=== PATIENT | female | born 1985 | race African-American/Black ===

== ENCOUNTER 2016-10-09 21:59 | Emergency (ER) | payer OTHER ==
[~2016-10-09] VITALS: Ht 172.7 cm; Wt 146.1 kg
[~2016-10-09 21:59] MED LIST: AMOX1TAB61 PO
[2016-10-09 23:10] VITALS: BP 161/109
[2016-10-09] MEDS ORDERED: HYDR-971 PO (23:30)
[2016-10-09] MEDS ORDERED: AMOX500C PO (23:30)
--- NOTE | 2016-10-09 23:30 | PHYS DOC ---
Past Medical History Past Medical History: No Pertinent History Past Surgical History: Additional Past Surgical Histo: PARTIAL BOWEL OBSTRUCTION Alcohol Use: Rarely Drug Use: None Adult General Chief Complaint Chief Complaint: DENTAL PROBLEM HPI HPI Patient is a 31 year old female presents emergency room with complaint of right upper dental pain after cracking her tooth on her tongue post 2-3 days ago. Patient states that she is pending an appointment with [facility] in 2 days for reevaluation. She denies being on antibiotics within the past 30 days. She has no other complaints or concerns at this time. Review of Systems Review of Systems Constitutional: Denies fever or chills [] Eyes: Denies change in visual acuity, redness, or eye pain [] HENT: Denies nasal congestion or sore throat [] Respiratory: Denies cough or shortness of breath [] Cardiovascular: No additional information not addressed in HPI [] GI: Denies abdominal pain, nausea, vomiting, bloody stools or diarrhea [] : Denies dysuria or hematuria [] Musculoskeletal: Denies back pain or joint pain [] Integument: Denies rash or skin lesions [] Neurologic: Denies headache, focal weakness or sensory changes [] Endocrine: Denies polyuria or polydipsia [] Allergies Allergies Allergies Coded Allergies Type Severity Reaction Last Updated Verified Sulfa (Sulfonamide Antibiotics) Allergy Intermediate 06/07/14 Yes Physical Exam Physical Exam Constitutional: Well developed, well nourished, no acute distress, non-toxic appearance. [] HENT: Normocephalic, atraumatic, bilateral external ears normal, oropharynx moist, no oral exudates, nose normal. There is no trismus. Right first mandibular molar is decayed into the dentin. There is no purulent drainage. There is no surrounding gingival abscess, inflammation or erythema. Eyes: PERRLA, EOMI, conjunctiva normal, no discharge. [] Neck: Normal range of motion, no tenderness, supple, no stridor. [] Cardiovascular:Heart rate regular rhythm, no murmur [] Lungs & Thorax: Bilateral breath sounds clear to auscultation [] Abdomen: Bowel sounds normal, soft, no tenderness, no masses, no pulsatile masses. [] Skin: Warm, dry, no erythema, no rash. [] Back: No tenderness, no CVA tenderness. [] Extremities: No tenderness, no cyanosis, no clubbing, ROM intact, no edema. [] Neurologic: Alert and oriented X 3, normal motor function, normal sensory function, no focal deficits noted. [] Psychologic: Affect normal, judgement normal, mood normal. [] Current Patient Data Vital Signs Vital Signs Date Time Temp Pulse Resp B/P Pulse Ox O2 Delivery O2 Flow Rate FiO2 10/09/16 23:10 98.4 96 22 97 Room Air 98.4 EKG EKG [] Radiology/Procedures Radiology/Procedures [] Course & Med Decision Making Course & Med Decision Making Pertinent Labs and Imaging studies reviewed. (See chart for details) [] Dragon Disclaimer Dragon Disclaimer This electronic medical record was generated, in whole or in part, using a voice recognition dictation system. Departure Departure Impression: Primary Impression: Pain, dental Disposition: HOME, SELF-CARE Condition: GOOD Referrals: LEN CELIS MD (PCP) Patient Instructions: Dental Pain, [id number] Additional Instructions: 1. Take the medication as prescribed. 2. Be sure to follow up with [facility] as planned. 3. Review the discharge instructions for reasons to return to the emergency room. 4. If you require any refills on medication, be sure to contact her primary care doctor for this. Scripts Amoxicillin 500 Mg Capsule1 Cap PO TID #30 CAP Prov:LOVELY GRAY 10/09/16 Hydrocodone/Apap 5-325 ([place] 5-325 Tablet)1 Each Tablet1 Tab PO PRN Q6HRS PRN PAIN #14 TAB Prov:LOVELY GRAY 10/09/16 LOVELY GRAY Oct 09, 2016 23:30
== END 2016-10-09 23:37 | disposition home or self-care (01) ==
LOC: ER 21:59
DX: K08.89 Other specified disorders of teeth and supporting structures (principal); Z88.2 Allergy status to sulfonamides
CPT/HCPCS: 99283

== ENCOUNTER 2018-01-11 08:41 | Emergency (ER) | payer OTHER | END 2018-01-11 09:35 | disposition home or self-care (01) | LOC: ER 09:35 | DX: H61.23 Impacted cerumen, bilateral (principal); H66.91 Otitis media, unspecified, right ear; Z88.2 Allergy status to sulfonamides | CPT/HCPCS: 69209; 99283-25 ==

== ENCOUNTER 2018-02-15 14:44 | Emergency (ER) | payer OTHER ==
[2018-02-16 08:52] LABS: NEGATIVE OBC STREP NEG; POSITIVE OBC STREP POS
== END 2018-02-15 16:46 | disposition home or self-care (01) ==
LOC: ER 14:44
DX: J03.90 Acute tonsillitis, unspecified (principal); J40 Bronchitis, not specified as acute or chronic; Z88.2 Allergy status to sulfonamides
CPT/HCPCS: 71046; 87070; 87880; 99285-25

== ENCOUNTER 2018-07-11 18:54 | Emergency (ER) | payer SELFPAY ==
[~2018-07-11] VITALS: Ht 172.7 cm; Wt 174.2 kg
[~2018-07-11 18:54] MED LIST changes: +AMOX500C PO; +HYDR-971 PO; +PROAIR HFA8.5 GM INH; +PROM118S3 PO
[2018-07-11 19:10] VITALS: BP 185/105
[2018-07-11] MEDS ORDERED: KETOROLAC 60 MG/2 ML INJ. IM ONE (19:15)
[2018-07-11] MEDS ORDERED: ORPHENADRINE CITRATE 60 MG/2 ML VIAL. IM ONE (19:15)
[2018-07-11] MEDS ORDERED: CYCL10TA2 PO (19:26)
[2018-07-11] MEDS ORDERED: HYDR-971 PO (19:26)
--- NOTE | 2018-07-11 19:27 | PHYS DOC ---
Past Medical History Past Medical History: No Pertinent History Past Surgical History: Additional Past Surgical Histo: PARTIAL BOWEL OBSTRUCTION Alcohol Use: Rarely Drug Use: None Adult General Chief Complaint Chief Complaint: MECHANICAL FALL HPI HPI Patient is a 33 year old female who presents with a heart last night at 20/2/ 30 in slipped on some water and fell on her left side. Patient states that she thought okay after she fell. Patient states she awoke this morning and intense pain and did not get out of bed because it was too hard and stated that she did not eat or drink anything because it was too painful and she did not want To get up to the bathroom. Patient denies taking any pain medications. Patient complains of left neck pain, cervical spine pain down to her lumbar. Review of Systems Review of Systems Constitutional: Denies fever or chills [] Eyes: Denies change in visual acuity, redness, or eye pain [] HENT: Denies nasal congestion or sore throat [] Respiratory: Denies cough or shortness of breath [] Cardiovascular: No additional information not addressed in HPI [] GI: Denies abdominal pain, nausea, vomiting, bloody stools or diarrhea [] : Denies dysuria or hematuria [] Musculoskeletal: Denies back pain or joint pain [] Integument: Denies rash or skin lesions [] Neurologic: Denies headache, focal weakness or sensory changes [] Endocrine: Denies polyuria or polydipsia [] All other systems were reviewed and found to be within normal limits, except as documented in this note. Current Medications Current Medications Current Medications Medications (Trade) Dose Ordered Sig/[facility] Start Time Stop Time Status Last Admin Dose Admin Ketorolac Tromethamine (Toradol Im) 60 mg 1X ONCE 07/11/18 19:15 07/11/18 19:17 DC 07/11/18 20:39 60 MG Orphenadrine Citrate (Norflex) 60 mg 1X ONCE 07/11/18 19:15 07/11/18 19:17 DC 07/11/18 20:38 60 MG Allergies Allergies Allergies Coded Allergies Type Severity Reaction Last Updated Verified Sulfa (Sulfonamide Antibiotics) Allergy Intermediate 06/07/14 Yes Physical Exam Physical Exam Constitutional: Well developed, well nourished, no acute distress, non-toxic appearance. [] HENT: Normocephalic, atraumatic, bilateral external ears normal, oropharynx moist, no oral exudates, nose normal. [] Eyes: PERRLA, EOMI, conjunctiva normal, no discharge. [] Neck: Normal range of motion, no tenderness, supple, no stridor. [] Cardiovascular:Heart rate regular rhythm, no murmur [] Lungs & Thorax: Bilateral breath sounds clear to auscultation [] Abdomen: Bowel sounds normal, soft, no tenderness, no masses, no pulsatile masses. [] Skin: Warm, dry, no erythema, no rash. [] Back: No tenderness, no CVA tenderness. [] Extremities: No tenderness, no cyanosis, no clubbing, ROM intact, no edema. [] Neurologic: Alert and oriented X 3, normal motor function, normal sensory function, no focal deficits noted. [] Psychologic: Affect normal, judgement normal, mood normal. [] Current Patient Data Vital Signs Vital Signs Date Time Temp Pulse Resp B/P (MAP) Pulse Ox O2 Delivery O2 Flow Rate FiO2 07/11/18 19:10 98.0 81 22 185/105 (131) 98 Room Air 98.0 Lab Values Laboratory Tests Test 07/11/18 19:30 07/11/18 19:36 Urine Collection Type Unknown Urine Color Yellow Urine Clarity Clear Urine pH 5.5 Urine Specific [place] 1.025 Urine Protein Negative mg/dL (NEG-TRACE) Urine Glucose (UA) Negative mg/dL (NEG) Urine Ketones (Stick) Negative mg/dL (NEG) Urine Blood Large (NEG) Urine Nitrite Negative (NEG) Urine Bilirubin Negative (NEG) Urine Urobilinogen Dipstick 0.2 mg/dL (0.2 mg/dL) Urine Leukocyte Esterase Trace (NEG) Urine RBC Tntc /HPF (0-2) Urine WBC 1-4 /HPF (0-4) Urine Squamous Epithelial Cells Mod /LPF Urine Bacteria 0 /HPF (0-FEW) Urine Mucus Mod /LPF POC Urine HCG, Qualitative Hcg negative (Negative) EKG EKG [] Radiology/Procedures Radiology/Procedures Cervical spine, thoracic spine, lumbar spin, left tib fib Impressions: Limited but there does not appear to be any acute fractures, dislocations, or deformites. Radiologist to review for final report. Course & Med Decision Making Course & Med Decision Making Patient is a 33 year old female who presents with a fall last night at 2230 by slipping on some water [facility] and fell on her left side. Patient states that she thought okay after she fell. Patient states she awoke this morning and intense pain and did not get out of bed because it was too hard and stated that she did not eat or drink anything because it was too painful and she did not want To get up to the bathroom. Patient denies taking any pain medications. Patient complains of left neck pain, cervical spine pain down to her lumbar. Patient has focal point bony tenderness on the left neck and mid neck neck down the middle of her back to her lumbar area. There are no deformities felt or seen. There is no bruising or swelling seen. Patient can move her neck but states that it is painful. Patient did walk into the ED from her mother's car. She is alert and oriented and denies any numbness or tingling. Patient denies hitting her head or LOC. Patient denies any weaknesses. She denies any nausea or vomiting. She denies any arm pain, wrist pain, ankle pain, foot pain, rib pain. Patient had no pain with palpation to her arms, wrists, ankles, feet or ribs. Patient has no chest pain with palpation or crepitus. She denies any shortness of breath or chest pain. Patient is given IM Norflex and IM Toradol in the ED. Xrays are limited but there does not appear to be any acute fractures , dislocations, or deformites. Radiologist to review for final report. These were read by Dr Del Cid. Patient to follow up with her primary care for continuation of care and to follow up on official reads. Patient will be given a prescription for Cyclobenzaprine and [place]. Patient is stable and in no distress. [] Dragon Disclaimer Dragon Disclaimer This electronic medical record was generated, in whole or in part, using a voice recognition dictation system. Departure Departure Impression: Primary Impression: Fall Additional Impression: Contusion Disposition: 01 HOME, SELF-CARE Condition: STABLE Referrals: LEN CELIS MD (PCP) Patient Instructions: Cervical Sprain, Contusion, Fall Prevention and Home Safety Additional Instructions: Follow up with your primary care doctor. Take medications as prescribed. Scripts Cyclobenzaprine Hcl (CYCLOBENZAPRINE HCL) 10 Mg Tablet 10 MG PO TID, #15 TAB Prov: SKY MODI APRN 07/11/18 Hydrocodone/Apap 5-325 (NORCO 5-325 TABLET) 1 Each Tablet 1 TAB PO PRN Q6HRS PRN for PAIN, #8 TAB 0 Refills Prov: SKY MODI APRN 07/11/18 Problem Qualifiers Primary Impression: Fall Encounter type: initial encounter Qualified Codes: W19.XXXA - Unspecified fall, initial encounter Additional Impression: Contusion Encounter type: initial encounter Contusion area: lower leg Laterality: left Qualified Codes: S80.12XA - Contusion of left lower leg, initial encounter SKY MODI APRN Jul 11, 2018 19:26
[2018-07-11 19:41] LABS: BILIRUBIN,URINE NEGATIVE (NEG); CLARITY,URINE CLEAR; COLOR,URINE YELLOW; NITRITE,URINE NEGATIVE (NEG); PH,URINE 5.5; PROTEIN,URINE NEGATIVE (NEG-TRACE); UROBILINOGEN,URINE 0.2 mg/dL (0.2 mg/dL)
[2018-07-11 19:54] LABS: BACTERIA,URINE 0 /HPF (0-FEW); RBC,URINE TNTC /HPF (0-2); SQUAMOUS EPITHELIAL CELL,UR MOD /LPF
--- NOTE | 2018-07-11 22:23 | RAD ---
Three-view thoracic spine radiographs 07/11/2018 CLINICAL HISTORY: Fall with mid back pain. AP, lateral and swimmer's lateral digital radiographs of the thoracic spine were obtained. Mild S-shaped curvature of the thoracolumbar spine is seen. No fracture or subluxation of the thoracic vertebrae is seen. Degenerative changes are seen involving the thoracic disc spaces consisting of vertebral endplate sclerosis and minimal to mild anterior vertebral body osteophyte formation. No paravertebral soft tissue swelling is noted. IMPRESSION: No fracture or subluxation of the thoracic vertebrae is seen. Electronically signed by: Aamir Ambriz MD (07/11/2018 10:19 PM) [facility]
--- NOTE | 2018-07-11 22:31 | RAD ---
Three-view lumbar spine radiographs 07/11/2018 CLINICAL HISTORY: Fall with low back pain. AP and 2 lateral digital radiographs of the lumbar spine were obtained. The patient appears to have transitional vertebral anatomy. The transitional vertebral segment is sacralized. Very mild S-shaped curvature of the thoracolumbar spine is seen. No fracture or subluxation of the lumbar vertebrae is seen. Degenerative changes are seen involving the facet joints of the lower lumbar spine. IMPRESSION: No fracture or subluxation of the lumbar vertebrae is seen. Electronically signed by: Aamir Ambriz MD (07/11/2018 10:27 PM) [facility]
--- NOTE | 2018-07-11 22:37 | RAD ---
AP and lateral cervical spine radiographs 07/11/2018 CLINICAL HISTORY: Low back pain. AP and lateral digital radiographs of the cervical spine were obtained. Comparison is made to a swimmer's radiograph of the cervical thoracic vertebra obtained for the patient's thoracic spine series concurrently with this examination. Slight reversal of the normal cervical lordosis is seen. No fracture or subluxation cervical vertebrae is seen. No prevertebral soft tissue swelling is noted. IMPRESSION: No fracture or subluxation of the cervical vertebrae is seen. Electronically signed by: Aamir Ambriz MD (07/11/2018 10:34 PM) [facility]
--- NOTE | 2018-07-11 22:40 | RAD ---
AP and lateral left tibia and fibula radiographs 07/11/2018 CLINICAL HISTORY: Fall with left alba pain. 2 AP and 2 lateral digital radiographs of the left tibia and fibula were obtained. No fracture or dislocation of the left tibia or fibula is seen. No radiopaque foreign body is noted. IMPRESSION:No fracture or dislocation of the left tibia or fibula is seen. Electronically signed by: Aamir Ambriz MD (07/11/2018 10:36 PM) [facility]
== END 2018-07-11 21:09 | disposition home or self-care (01) ==
LOC: ER 18:54
DX: S80.12XA Contusion of left lower leg, initial encounter (principal); S10.93XA Contusion of unspecified part of neck, initial encounter; S30.0XXA Contusion of lower back and pelvis, initial encounter; M54.2 Cervicalgia; M54.5 Low back pain; Z88.2 Allergy status to sulfonamides; Z98.890 Other specified postprocedural states; W01.0XXA Fall on same level from slipping, tripping and stumbling without subsequent striking against object, initial encounter; Y93.89 Activity, other specified; Y92.89 Other specified places as the place of occurrence of the external cause; Y99.8 Other external cause status
CPT/HCPCS: 72040; 72072; 72100; 73590; 81001; 81025; 87086; 96372; 99285; J1885; J2360

== ENCOUNTER 2019-05-07 23:01 | Emergency (ER) | payer SELFPAY ==
[~2019-05-07] VITALS: Ht 170.2 cm; Wt 174.2 kg
[~2019-05-07 23:01] MED LIST changes: +ALBU2.5V8 INH; +CYCL10TA2 PO; +HYDR-3164 PO; -HYDR-971 PO; -PROAIR HFA8.5 GM INH; -PROM118S3 PO; +PROM118S4 PO
[2019-05-07 23:03] VITALS: BP 171/105
[2019-05-07] MEDS ORDERED: NEOM10DR32 EACH EAR (23:28)
[2019-05-07] MEDS ORDERED: KETOROLAC 30 MG/ML VIAL. IM ONE (23:30)
[2019-05-07] MEDS ORDERED: ORPHENADRINE CITRATE 60 MG/2 ML VIAL. IM ONE (23:30)
[2019-05-07] MEDS ORDERED: NEOMYCIN/POLYMYXIN/HC OTIC SUSPENSION 10ML BOTTLE. AS ONE (23:30)
--- NOTE | 2019-05-07 23:30 | PHYS DOC ---
Past Medical History Past Medical History: No Pertinent History (LEN PETTY APRN) Past Surgical History: Additional Past Surgical Histo: PARTIAL BOWEL OBSTRUCTION (LEN PETTY APRN) Alcohol Use: Rarely Drug Use: None (LEN PETTY APRN) Adult General Chief Complaint Chief Complaint: FOREIGNBODY EAR HPI HPI Patient is a 34 year old female that presents with left ear pain has been ongoing for 6 days. The patient states she was outside and thought a bug flew in her ear. And her ears been hurting ever since. The patient also states she's been having back spasms since Sunday after moving items. Rates her pain a 7 out of 10 in severity.Originally tried to get an appointment with Dr. Pettit primary care doctor however unable to get into until next . (LEN PETTY APRN) Review of Systems Review of Systems Constitutional: Denies fever or chills [] Eyes: Denies change in visual acuity, redness, or eye pain [] HENT: Reports left ear pain and reduced hearing. Respiratory: Denies cough or shortness of breath [] Cardiovascular: No additional information not addressed in HPI [] GI: Denies abdominal pain, nausea, vomiting, bloody stools or diarrhea [] : Denies dysuria or hematuria [] Musculoskeletal: Reports lower back pain. Integument: Denies rash or skin lesions [] Neurologic: Denies headache, focal weakness or sensory changes [] Endocrine: Denies polyuria or polydipsia [] Complete systems were reviewed and found to be within normal limits, except as documented in this note. (LEN PETTY APRN) Current Medications Current Medications Current Medications Medications (Trade) Dose Ordered Sig/[place] Start Time Stop Time Status Last Admin Dose Admin Ketorolac Tromethamine (Toradol 30mg Vial) 30 mg 1X ONCE 05/07/19 23:30 05/07/19 23:31 DC 05/07/19 23:40 30 MG Neomycin/ Polymyxin/ Hydrocortisone (Cortisporin Otic) 4 drop 1X ONCE 05/07/19 23:30 05/07/19 23:31 DC 05/07/19 23:42 4 DROP Orphenadrine Citrate (Norflex) 60 mg 1X ONCE 05/07/19 23:30 05/07/19 23:31 DC 05/07/19 23:40 60 MG (LENAGHAN,YUSUF MD) Allergies Allergies Allergies Coded Allergies Type Severity Reaction Last Updated Verified Sulfa (Sulfonamide Antibiotics) Allergy Intermediate 06/07/14 Yes (YUSUF ARENAS MD) Physical Exam Physical Exam Constitutional: Well developed, well nourished, no acute distress, non-toxic appearance. [] HENT: Normocephalic, atraumatic, bilateral external ears normal, left ear canal, has mild edema and erythema. Both ears have cerumen impactions, oropharynx moist, no oral exudates, nose normal. [] Eyes: PERRLA, EOMI, conjunctiva normal, no discharge. [] Neck: Normal range of motion, no tenderness, supple, no stridor. [] Cardiovascular:Heart rate regular rhythm, no murmur [] Lungs & Thorax: Bilateral breath sounds clear to auscultation [] Abdomen: Bowel sounds normal, soft, no tenderness, no masses, no pulsatile masses. [] Skin: Warm, dry, no erythema, no rash. [] Back: mild tenderness, no CVA tenderness. [] Extremities: No tenderness, no cyanosis, no clubbing, ROM intact, no edema. [] Neurologic: Alert and oriented X 3, normal motor function, normal sensory function, no focal deficits noted. [] Psychologic: Affect normal, judgement normal, mood normal. [] (LEN PETTY APRN) Current Patient Data Vital Signs Vital Signs Date Time Temp Pulse Resp B/P (MAP) Pulse Ox O2 Delivery O2 Flow Rate FiO2 05/07/19 23:03 98.4 107 16 171/105 (127) 99 Room Air 98.4 (YUSUF ARENAS MD) EKG EKG [] (LEN PETTY APRN) Radiology/Procedures Radiology/Procedures [] (LEN PETTY APRN) Course & Med Decision Making Course & Med Decision Making Pertinent Labs and Imaging studies reviewed. (See chart for details) Patient appears to have cerumen impactions and otitis externa. No insect visualized in the ear. Discussed with patient treating otitis externa with antibiotics and then trying over the counter ear cerumen softener however she wants it irrigated in ER. Nursing will attempt to irrigate. Will also give Toradol and Norflex in ER for back spasms. Nursing cleaned out cerumen and patient has Otitis media in the left ear as well with copious amount of exudate on the tympanic membrane. (LEN PETTY APRN) Course & Med Decision Making Staff Physician Addendum: I was working in the ER during the course of this patient's visit. I was available for consultation as needed, but I was not directly involved in the care of this patient. (YUSUF ARENAS MD) Dragon Disclaimer Dragon Disclaimer This electronic medical record was generated, in whole or in part, using a voice recognition dictation system. (LEN PETTY APRN) Departure Departure Impression: Primary Impression: Otitis externa of left ear Additional Impressions: Impacted cerumen of both ears Otitis media Disposition: 01 HOME, SELF-CARE Condition: STABLE Referrals: LEN PETTIT MD (PCP) Patient Instructions: Otitis Externa Additional Instructions: Thank you for visiting [facility]. We appreciate you trusting us with your care. If any additional problems come up don't hesitate to return to visit us. Please follow up with your primary care provider so they can plan a dditional care if needed and know about the problem that you had. If symptoms worsen come back to the Emergency Department. Any concerning symptoms that start such as chest pain, shortness of air, weakness or numbness on one side of the body, running high fevers or any other concerning symptoms return to the ER. You have been prescribed an antibiotic today to help fight your infection. Please take all of the antibiotic as directed. If after 48 hours the infection is not improving, please return for more care. If the infection worsens, return to ER for additional care. Please get over the counter ear wax softener to her get the ear wax out of ear. Scripts Amoxicillin/Potassium Clav (AUGMENTIN 875-125 TABLET) 1 Each Tablet 1 TAB PO BID for 7 Days, #14 TAB Prov: LEN PETTY APRN 05/08/19 Neomycin/Polymyxin B Sulf/Hc (VWCYFRQV-GQRVURMEL-CC EAR SUSP) 10 Ml Drops.susp 4 DROP EACH EAR QID for 7 Days, #10 ML Prov: LEN PETTY APRN 05/07/19 Problem Qualifiers Primary Impression: Otitis externa of left ear Otitis externa type: unspecified type Chronicity: acute Qualified Codes: H60.502 - Unspecified acute noninfective otitis externa, left ear Additional Impressions: Otitis media Chronicity: acute Laterality: left Recurrence: not specified as recurrent LEN PETTY APRN May 07, 2019 23:30 YUSUF ARENAS MD May 10, 2019 00:37
[2019-05-08] MEDS ORDERED: AMOX1TAB61 PO (00:10)
== END 2019-05-08 00:15 | disposition home or self-care (01) ==
LOC: ER 23:01
DX: H60.502 Unspecified acute noninfective otitis externa, left ear (principal); H61.23 Impacted cerumen, bilateral; H66.92 Otitis media, unspecified, left ear; M54.5 Low back pain; Z98.890 Other specified postprocedural states; Z88.2 Allergy status to sulfonamides
CPT/HCPCS: 69209; 96372; 99284; J1885; J2360; 69210; 99283

== ENCOUNTER 2019-07-13 14:02 | Emergency (ER) | payer SELFPAY ==
[~2019-07-13] VITALS: Ht 172.7 cm; Wt 174.2 kg
[~2019-07-13 14:02] MED LIST changes: +NEOM10DR32 EACH EAR
[2019-07-13 14:05] VITALS: BP 170/97
[2019-07-13] MEDS ORDERED: KETOROLAC 30 MG/ML VIAL. IM ONE (15:30)
[2019-07-13] MEDS ORDERED: CLOT30SO2 LEFT EAR (15:50)
--- NOTE | 2019-07-13 15:50 | PHYS DOC ---
Past Medical History Past Medical History: No Pertinent History Past Surgical History: Additional Past Surgical Histo: PARTIAL BOWEL OBSTRUCTION Alcohol Use: Rarely Drug Use: None Adult General Chief Complaint Chief Complaint: EARACHE/EAR PAIN [facility] Patient is a 34 year old female who presents to the emergency room with complaints of continued left ear pain after being seen here one month ago and being prescribed antibiotics for bilateral ear infection. Patient states that she completed the antibiotics as prescribed. However, she states that her left ear has been draining yellow fluid and this morning was bleeding. She denies any trauma to the ear. currently he rates her pain at 10 on the 10 on the pain scale, she denies any alleviating factors. Patient denies any fever, cough, nasal congestion, nausea, vomiting, diarrhea, abdominal pain, sore throat, shortness of breath, or wheezing. All other ROS is negative unless otherwise documented in [facility]. Review of Systems Review of Systems See Above Current Medications Current Medications Current Medications Medications (Trade) Dose Ordered Sig/[place] Start Time Stop Time Status Last Admin Dose Admin Ketorolac Tromethamine (Toradol 30mg Vial) 30 mg 1X ONCE 07/13/19 15:30 07/13/19 15:31 DC 07/13/19 15:23 30 MG Allergies Allergies Allergies Coded Allergies Type Severity Reaction Last Updated Verified Sulfa (Sulfonamide Antibiotics) Allergy Intermediate 06/07/14 Yes Physical Exam Physical Exam See AboveSee Above Constitutional: Well developed, well nourished, no acute distress, non-toxic appearance. [] HENT: Normocephalic, atraumatic, bilateral external ears normal, left TM is difficult to visualize due to drainage in ear canal, right TM unable to visualizendue to cerumen impaction, oropharynx moist, no oral exudates, nose normal. [] Eyes: PERRLA, EOMI, conjunctiva normal, no discharge. [] Neck: Normal range of motion, no tenderness, supple, no stridor. [] Cardiovascular:Heart rate regular rhythm Lungs & Thorax: respirations even and unlabored, no retractions, no distress Skin: Warm, dry, no erythema, no rash. [] Extremities: No cyanosis, ROM intact Neurologic: Alert and oriented X 3, no focal deficits noted. [] Psychologic: Affect normal, judgement normal, mood normal. [] Current Patient Data Vital Signs Vital Signs Date Time Temp Pulse Resp B/P (MAP) Pulse Ox O2 Delivery O2 Flow Rate FiO2 07/13/19 14:05 98.9 78 16 170/97 (121) 98 Room Air 98.9 EKG EKG [] Radiology/Procedures Radiology/Procedures [] Course & Med Decision Making Course & Med Decision Making Pertinent Labs and Imaging studies reviewed. (See chart for details) Prescription was written for clotrimazole 1% suspension to place in the left ear twice a day for 14 days. Patient was instructed to follow-up with ear nose and throat doctor Jeannie Kumar for further evaluation and treatment of her left ear problems. Patient verbalized an understanding of home care, medications, follow-up, and return to ED instructions and was in agreement with the plan of care.Fill prescription(s) and use as directed. Dragon Disclaimer Dragon Disclaimer This electronic medical record was generated, in whole or in part, using a voice recognition dictation system. Departure Departure Impression: Primary Impression: Otomycosis of left ear Disposition: HOME, SELF-CARE Condition: STABLE Referrals: LEN CELIS MD (PCP) CAMILO MARTEL MD Patient Instructions: Otomycosis-Brief Additional Instructions: Tylenol or ibuprofen as needed for pain. Fill the prescription and use as directed. Follow up with Dr. Martel if symptoms persist, return to the ER if symptoms worsen. Scripts Clotrimazole (CLOTRIMAZOLE) 30 Ml Solution 5 DROP LEFT EAR BID for 14 Days, #1 BOTTLE 0 Refills 1% solution Prov: YO WATTS APRN 07/13/19 YO WATTS APRN Jul 13, 2019 15:50
== END 2019-07-13 15:51 | disposition home or self-care (01) ==
LOC: ER 14:02
DX: B36.9 Superficial mycosis, unspecified (principal); H62.42 Otitis externa in other diseases classified elsewhere, left ear; Z98.890 Other specified postprocedural states; Z88.2 Allergy status to sulfonamides
CPT/HCPCS: 96372; 99283; J1885

== ENCOUNTER 2019-10-28 18:43 | Emergency (ER) | payer OTHER ==
[~2019-10-28] VITALS: Ht 172.7 cm; Wt 170.0 kg
[~2019-10-28 18:43] MED LIST changes: +CLOT30SO2 LEFT EAR
[2019-10-28] MEDS ORDERED: IPRATRPIUM/ALBUTEROL 0.5/2.5MG 3 ML NEBU. ONE (19:12)
[2019-10-28 19:13] VITALS: BP 170/97
--- NOTE | 2019-10-28 19:17 | PHYS DOC ---
Past Medical History Past Medical History: No Pertinent History Past Surgical History: Additional Past Surgical Histo: PARTIAL BOWEL OBSTRUCTION Alcohol Use: Rarely Drug Use: None Adult General Chief Complaint Chief Complaint: ASTHMA HPI HPI Patient is a 34 year old AA female who presents to the emergency department with complaints of cough, congestion, shortness of breath, body aches, fatigue, and wheezing for the last 4 days. She states that her children was diagnosed with pneumonia. Patient denies any fever, nausea, vomiting, diarrhea, ear pain, sore throat, chest pain, or palpitations. She states that she has been using her albuterol inhaler at home but reports that she thinks her inhaler is almost out of medication. She denies any swelling in her lower extremities. The patient currently rates her pain a 8 out of 10 on the pain scale, she states that the pain is triggered by coughing, she denies any alleviating factors. Pt states the pain is in her upper abdomen with coughing. She denies any known exposure to influenza. All other ROS is neg unless otherwise noted in HPI. Review of Systems Review of Systems See Above Current Medications Current Medications Current Medications Medications (Trade) Dose Ordered Sig/Niecy Start Time Stop Time Status Last Admin Dose Admin Albuterol Sulfate (Ventolin Neb Soln) 2.5 mg 1X ONCE 10/28/19 19:45 10/28/19 19:46 DC 10/28/19 19:30 2.5 MG Albuterol/ Ipratropium (Duoneb) 3 ml STK-MED ONCE 10/28/19 19:12 10/28/19 19:12 DC Dexamethasone Sodium Phosphate (Decadron) 10 mg 1X ONCE 10/28/19 19:45 10/28/19 19:46 DC 10/28/19 19:21 10 MG Ketorolac Tromethamine (Toradol Im) 60 mg 1X ONCE 10/28/19 22:30 10/28/19 22:09 DC Allergies Allergies Allergies Coded Allergies Type Severity Reaction Last Updated Verified Sulfa (Sulfonamide Antibiotics) Allergy Intermediate 06/07/14 Yes Physical Exam Physical Exam See Above Constitutional: Well developed, well nourished, no acute distress, ill appearance, obese HENT: Normocephalic, atraumatic, bilateral external ears normal, bilateral TMs normal, posterior pharynx normal, oropharynx moist, no oral exudates, nasal turbinates erythematous and edematous bilaterally, nose congested Eyes: PERRLA, EOMI, conjunctiva normal, no discharge. [] Neck: Normal range of motion, no tenderness, supple, no stridor. [] Cardiovascular:Heart rate regular rhythm, no murmur [] Lungs & Thorax: Bilateral breath sounds clear to auscultation in upper lobes bilaterally, diminished and coarse in posterior lower lobes, Respirations even and unlabored, no retractions, no respiratory distress, nontender to palpation [] Abdomen: soft, no tenderness, no masses, no pulsatile masses. [] Skin: Warm, dry, no erythema, no rash. [] Back: No tenderness Extremities: No cyanosis, no clubbing, ROM intact, no edema. [] Neurologic: Alert and oriented X 3, no focal deficits noted. [] Psychologic: Affect normal, judgement normal, mood normal. [] Current Patient Data Vital Signs Vital Signs Date Time Temp Pulse Resp B/P (MAP) Pulse Ox O2 Delivery O2 Flow Rate FiO2 10/28/19 19:32 98 Room Air 10/28/19 19:13 98.8 93 16 170/97 (121) 98.8 Lab Values Laboratory Tests Test 10/28/19 19:05 10/28/19 19:14 10/28/19 20:58 Influenza Type A Antigen Negative (NEGATIVE) Influenza Type B Antigen Negative (NEGATIVE) POC Urine HCG, Qualitative Hcg negative (Negative) White Blood Count 10.6 x10^3/uL (4.0-11.0) Red Blood Count 4.38 x10^6/uL (3.50-5.40) Hemoglobin 10.3 g/dL (12.0-15.5) L Hematocrit 32.5 % (36.0-47.0) L Mean Corpuscular Volume 74 fL (79-100) L Mean Corpuscular Hemoglobin 23 pg (25-35) L Mean Corpuscular Hemoglobin Concent 32 g/dL (31-37) Red Cell Distribution Width 17.6 % (11.5-14.5) H Platelet Count 463 x10^3/uL (140-400) H Neutrophils (%) (Auto) 55 % (31-73) Lymphocytes (%) (Auto) 26 % (24-48) Monocytes (%) (Auto) 7 % (0-9) Eosinophils (%) (Auto) 10 % (0-3) H Basophils (%) (Auto) 1 % (0-3) Neutrophils # (Auto) 5.9 x10^3/uL (1.8-7.7) Lymphocytes # (Auto) 2.8 x10^3/uL (1.0-4.8) Monocytes # (Auto) 0.8 x10^3/uL (0.0-1.1) Eosinophils # (Auto) 1.1 x10^3/uL (0.0-0.7) H Basophils # (Auto) 0.1 x10^3/uL (0.0-0.2) Segmented Neutrophils % 45 % (35-66) Lymphocytes % 49 % (24-48) H Monocytes % 3 % (0-10) Eosinophils % 3 % (0-5) Platelet Estimate Increased (ADEQUATE) Poikilocytosis Slight Microcytosis Slight Macrocytosis Slight YK-Soc-[id number]-Type Natriuretic Peptide 54 pg/mL (0-124) Laboratory Tests 10/28/19 20:58 EKG EKG [] Radiology/Procedures Radiology/Procedures PROCEDURE: CHEST PA & LATERAL Exam: Chest 2 views INDICATION: Cough TECHNIQUE: Frontal and lateral views the chest Comparisons: 02/15/2018 FINDINGS: The cardiomediastinal silhouette is within normal limits. Pulmonary vessels are obscured. Hazy opacity in the lungs bilaterally. Small bilateral pleural effusions. IMPRESSION: Findings likely related to pulmonary edema with small bilateral pleural effusions. A superimposed infectious process is difficult to exclude. [] Course & Med Decision Making Course & Med Decision Making Pertinent Labs and Imaging studies reviewed. (See chart for details) Patient is a 34-year-old -[place] female with a history of asthma who presented to the emergency department for evaluation of cough and upper abdominal pain with coughing. Influenza testing was negative, CBC was unremarkable, her BNP was not elevated Her chest x-ray revealed hazy opacity in bilateral lungs with bilateral small pleural effusions. The patient was given 10 mg of by mouth Decadron, a breathing treatment, and 60 mg of IM Toradol in the emergency department. Prescription for 750 mg of Levaquin 10 days was written, the patient was encouraged to avoid increased physical activity and contact sports while taking the medication as there is increased risk of tendon rupture. Prescriptions were also written for an albuterol inhaler, Tessalon Perles, and prednisone. She was instructed to avoid airway irritants, recommended the use of a cool mist Ortiz fire. Instructed patient to follow-up with her primary care doctor in the next 1-2 days, return to the ER if symptoms worsen. Patient verbalized an understanding of home care, medications, follow-up, and return to ED instructions and was in agreement with the plan of care. [] Dragon Disclaimer Dragon Disclaimer This electronic medical record was generated, in whole or in part, using a voice recognition dictation system. Departure Departure Impression: Primary Impression: Community acquired pneumonia Disposition: HOME, SELF-CARE Condition: STABLE Referrals: UNKNOWN PCP NAME (PCP) Patient Instructions: Pneumonia, Adult, Sgdx-lw-Hcob Additional Instructions: Fill prescription(s) and use as directed. Recommend use of a Cool mist humidifier in room at bedtime. Alternate Tylenol or ibuprofen as needed for pain/fever. Increase clear fluids. Avoid airway triggers such as smoke, fragrance, dust, and pollen. Follow-up with your primary care doctor in 1-2 days, return to the ER if symptoms worsen. Scripts Albuterol Sulfate (Proair Hfa) 8.5 Gm Hfa.aer.ad 2 PUFF IH PRN Q4-6HRS PRN for wheezing for 21 Days, #1 INHALER 0 Refills Prov: YO WATTS ASBESTOS SURVEYOR 10/28/19 Benzonatate (TESSALON PERLE) 100 Mg Capsule 1 CAP PO TID PRN for COUGH for 7 Days, #21 CAP 0 Refills Prov: YO WATTS ASBESTOS SURVEYOR 10/28/19 Prednisone (PREDNISONE) 50 Mg Tablet 1 TAB PO DAILY for 5 Days, #5 TAB 0 Refills start taking on 10/29/19 Prov: YO WATTS ASBESTOS SURVEYOR 10/28/19 Levofloxacin (LEVAQUIN) 750 Mg Tablet 1 TAB PO DAILY for 10 Days, #10 TAB 0 Refills Prov: YO WATTS ASBESTOS SURVEYOR 10/28/19 Problem Qualifiers Primary Impression: Community acquired pneumonia Laterality: unspecified laterality Qualified Codes: J18.9 - Pneumonia, unspecified organism YO WATTS ASBESTOS SURVEYOR Oct 28, 2019 19:17
[2019-10-28 19:38] LABS: INFLUENZA A PATIENT NEGATIVE (NEGATIVE); INFLUENZA B PATIENT NEGATIVE (NEGATIVE)
[2019-10-28] MEDS ORDERED: DEXAMETHASONE SOD PHOS 20 MG/5 ML VIAL. PO ONE (19:45)
[2019-10-28] MEDS ORDERED: ALBUTEROL SULFATE 2.5 MG/3 ML NEBU. NEB ONE (19:45)
--- NOTE | 2019-10-28 20:26 | RAD ---
Exam: Chest 2 views INDICATION: Cough TECHNIQUE: Frontal and lateral views the chest Comparisons: 02/15/2018 FINDINGS: The cardiomediastinal silhouette is within normal limits. Pulmonary vessels are obscured. Hazy opacity in the lungs bilaterally. Small bilateral pleural effusions. IMPRESSION: Findings likely related to pulmonary edema with small bilateral pleural effusions. A superimposed infectious process is difficult to exclude. Electronically signed by: Rikki Preciado MD (10/28/2019 8:24 PM) [facility]
[2019-10-28 21:06] LABS: BASO # 0.1 x10^3/uL (0.0-0.2); BASO % 1 % (0-3); EOS # 1.1 x10^3/uL (0.0-0.7); EOS % 10 % (0-3); HEMATOCRIT 32.5 % (36.0-47.0); HEMOGLOBIN 10.3 g/dL (12.0-15.5); LYMPH # 2.8 x10^3/uL (1.0-4.8); LYMPH % 26 % (24-48); MEAN CORPUSCULAR HEMOGLOBIN 23 pg (25-35); MEAN CORPUSCULAR HGB CONC 32 g/dL (31-37); MEAN CORPUSCULAR VOLUME 74 fL (79-100); MONO # 0.8 x10^3/uL (0.0-1.1); MONO % 7 % (0-9); NEUT # 5.9 x10^3/uL (1.8-7.7); NEUT % 55 % (31-73); PLATELET COUNT 463 x10^3/uL (140-400); RED BLOOD COUNT 4.38 x10^6/uL (3.50-5.40); RED CELL DISTRIBUTION WIDTH 17.6 % (11.5-14.5); WHITE BLOOD COUNT 10.6 x10^3/uL (4.0-11.0)
[2019-10-28 21:46] LABS: % EOS 3 % (0-5); % LYMPHS 49 % (24-48); % MONOS 3 % (0-10); % SEGS 45 % (35-66); PLT ESTIMATE INCREASED (ADEQUATE)
[2019-10-28 21:47] LABS: MICROCYTOSIS SLIGHT; POIKILOCYTOSIS SLIGHT
[2019-10-28] MEDS ORDERED: BENZ100C PO (21:54)
[2019-10-28] MEDS ORDERED: PRED50TA PO (21:54)
[2019-10-28] MEDS ORDERED: LEVO750T31 PO (21:54)
[2019-10-28] MEDS ORDERED: ALBU2.5V8 IH (21:54)
[2019-10-28] MEDS ORDERED: KETOROLAC 60 MG/2 ML VIAL. IM ONE (22:30)
== END 2019-10-28 22:09 | disposition home or self-care (01) ==
LOC: ER 18:43
DX: J18.9 Pneumonia, unspecified organism (principal); Z88.2 Allergy status to sulfonamides
CPT/HCPCS: 36415; 71046; 81025; 83880; 85007; 85025; 87804; 94640; 99285; J1100; J7613

== ENCOUNTER 2019-12-16 20:31 | Emergency (ER) | payer OTHER ==
[~2019-12-16] VITALS: Ht 172.7 cm; Wt 15.0 kg
[~2019-12-16 20:31] MED LIST changes: +ALBU2.5V8 IH; +BENZ100C PO; +LEVO750T31 PO; +PRED50TA PO
[2019-12-16 21:33] VITALS: BP 174/99
--- NOTE | 2019-12-16 22:17 | PHYS DOC ---
Past Medical History Past Medical History: Asthma Past Surgical History: Additional Past Surgical Histo: PARTIAL BOWEL OBSTRUCTION Smoking Status: Current Every Day Smoker Alcohol Use: Rarely Drug Use: None Adult General Chief Complaint Chief Complaint: FLU SYMPTOM HPI HPI Patient is a 34 year old female with a history of asthma who presents the ED today complaining of cough, nasal congestion, bilateral ear pain, and chils symptoms began a week ago and per her statement symptoms have gotten worse and she feels she has a bad sinus infection and is requesting Levaquin stating that is the only antibiotics that work for her. Review of Systems Review of Systems Constitutional: Denies fever or chills [] Eyes: Denies change in visual acuity, redness, or eye pain [] HENT:reports nasal congestion and bilateral ear pain denies sore throat [] Respiratory: Reports cough denies shortness of breath [] Cardiovascular: No additional information not addressed in HPI [] GI: Denies abdominal pain, nausea, vomiting, bloody stools or diarrhea [] : Denies dysuria or hematuria [] Musculoskeletal: Denies back pain or joint pain [] Integument: Denies rash or skin lesions [] Neurologic: Denies headache, focal weakness or sensory changes [] All other systems were reviewed and found to be within normal limits, except as documented in this note. Allergies Allergies Allergies Coded Allergies Type Severity Reaction Last Updated Verified Sulfa (Sulfonamide Antibiotics) Allergy Intermediate 06/07/14 Yes Physical Exam Physical Exam Constitutional: Well developed, well nourished, no acute distress, non-toxic appearance. [] HENT: Normocephalic, atraumatic, bilateral external ears normal, oropharynx moist, no oral exudates, patient sounds congested nasally. Bilateral nasal turbinates erythematous and boggy. Mild frontal and maxillary sinus tenderness. Eyes: PERRLA, EOMI, conjunctiva normal, no discharge. [] Neck: Normal range of motion, no tenderness, supple, no stridor. [] Cardiovascular:Heart rate regular rhythm, no murmur [] Lungs & Thorax: Bilateral breath sounds clear to auscultation [] Abdomen: Bowel sounds normal, soft, no tenderness, no masses, no pulsatile masses. [] Skin: Warm, dry, no erythema, no rash. [] Back: No tenderness, no CVA tenderness. [] Extremities: No tenderness, no cyanosis, no clubbing, ROM intact, no edema. [] Neurologic: Alert and oriented X 3, normal motor function, normal sensory function, no focal deficits noted. [] Psychologic: Affect normal, judgement normal, mood normal. [] Current Patient Data Vital Signs Vital Signs Date Time Temp Pulse Resp B/P (MAP) Pulse Ox O2 Delivery O2 Flow Rate FiO2 12/16/19 21:33 99.0 103 16 174/99 (124) 99 Room Air 99.0 EKG EKG [] Radiology/Procedures Radiology/Procedures [] Course & Med Decision Making Course & Med Decision Making Pertinent Labs and Imaging studies reviewed. (See chart for details) This is a 34-year-old female patient presenting to the ED today with cough and symptoms of sinusitis but not enough to warrant antibiotic treatment. I try to talk to patient about conservative measures and avoiding antibiotics, she states every time she has these symptoms she is treated with Levaquin otherwise no antibiotics is working for her. Informed patient there is a most of this antibiotics are not working for her because she has been taking them unnecessarily for too long. She continues to insist requesting Levaquin, prednisone and claritin RX. Prescription was given, she will follow-up with her own doctor. Edison Disclaimer Edison Disclaimer This electronic medical record was generated, in whole or in part, using a voice recognition dictation system. Departure Departure Impression: Primary Impression: Acute sinusitis Disposition: 01 HOME, SELF-CARE Condition: STABLE Referrals: UNKNOWN PCP NAME (PCP) follow up in 1-2 weeks Patient Instructions: Sinusitis Additional Instructions: Please take the prescribed antibiotics until completed. Follow-up with your doctor in 1 to 2 weeks. Scripts Loratadine (CLARITIN) 10 Mg Capsule 1 CAP PO DAILY for allergy symptoms, #90 CAP 0 Refills Prov: MUTUNGA,TENA GENERAL MANAGER 12/16/19 Methylprednisolone (MEDROL) 4 Mg Tab.ds.pk 1 PKG PO UD, #1 PKG Prov: MUTUNGA,TENA GENERAL MANAGER 12/16/19 Levofloxacin (LEVAQUIN) 500 Mg Tablet 1 TAB PO DAILY for 7 Days, #7 TAB 0 Refills Prov: MUTUNGA,TENA GENERAL MANAGER 12/16/19 Problem Qualifiers Primary Impression: Acute sinusitis Sinusitis location: unspecified location Recurrence: not specified as recurrent Qualified Codes: J01.90 - Acute sinusitis, unspecified TENA MARTINEZ APRN Dec 16, 2019 22:17
[2019-12-16] MEDS ORDERED: METH4TAB2 PO (22:28)
[2019-12-16] MEDS ORDERED: LEVO500T59 PO (22:28)
[2019-12-16] MEDS ORDERED: LORA10CA PO (22:28)
== END 2019-12-16 22:35 | disposition home or self-care (01) ==
LOC: ER 20:31
DX: J01.90 Acute sinusitis, unspecified (principal); J45.909 Unspecified asthma, uncomplicated; F17.200 Nicotine dependence, unspecified, uncomplicated; Z88.2 Allergy status to sulfonamides
CPT/HCPCS: 99283

== ENCOUNTER 2020-04-04 23:14 | Emergency (ER) | payer OTHER ==
[~2020-04-04] VITALS: Ht 172.7 cm; Wt 165.4 kg
[~2020-04-04 23:14] MED LIST changes: +LEVO500T59 PO; +LORA10CA PO; +METH4TAB2 PO
[2020-04-04 23:20] VITALS: BP 220/121
[2020-04-05] MEDS ORDERED: diphenhydrAMINE 50 MG/ML VIAL IVP ONE (00:30)
[2020-04-05] MEDS ORDERED: KETOROLAC 30 MG/ML VIAL. IVP ONE (00:30)
[2020-04-05] MEDS ORDERED: PROCHLORPERAZINE 10 MG/2 ML VIAL. IV ONE (00:30)
--- NOTE | 2020-04-05 00:36 | PHYS DOC ---
Past Medical History Past Medical History: Asthma Past Surgical History: Additional Past Surgical Histo: PARTIAL BOWEL OBSTRUCTION Smoking Status: Former Smoker Additional Information: QUIT "MONTHS" AGO. Alcohol Use: None Drug Use: None General Adult EDM: Chief Complaint: HEADACHE HPI: HPI: Patient is a 35 year oldqrq-koyp-anr female past medical history of asthma presents with a chief complaint of frontal headache associated with ear pain and neck pain. Patient states symptoms started 8 days ago. Patient's pain is located frontal region. Patient states she feels as if someone is tapping her on the head. Patient states she has some clear mucus production and some bilateral otalgia. Patient states she feels as if there is fluid in her ears. Patient also complains of bilateral neck pain pain worse on the left. Patient's neck is tender to palpation and she has pain with range of motion. Patient denies any fevers but states she has had some night sweats. Patient states she has lost her appetite and is has been nauseous. Patient states she is also had some diarrhea. Patient states she was evaluated at [facility] 1 week ago for the similar complaints. At that time patient was at work and sent home. Patient states at that time she had COVID-19 test which was negative. Patient also states her son had similar complaints. Patient son was evaluated at [facility] also negative for COVID. Patient states she has been taking over the counter medications which alleviates her symptoms but once medication wears off the headache returns. Review of Systems: Review of Systems: Constitutional: Denies fever or chills. [] Eyes: Denies change in visual acuity. [] HENT: Denies nasal congestion or sore throat. [] Respiratory: Denies cough or shortness of breath. [] Cardiovascular: Denies chest pain or edema. [] GI: Denies abdominal pain, nausea, vomiting, bloody stools or diarrhea. [] : Denies dysuria. [] Musculoskeletal: Denies back pain or joint pain. [] Integument: Denies rash. [] Neurologic: Denies headache, focal weakness or sensory changes. [] Endocrine: Denies polyuria or polydipsia. [] Lymphatic: Denies swollen glands. [] Psychiatric: Denies depression or anxiety. [] Heart Score: Risk Factors: Risk Factors: DM, Current or recent (<one month) smoker, HTN, HLP, family history of CAD, obesity. Risk Scores: Score 0 - 3: 2.5% MACE over next 6 weeks - Discharge Home Score 4 - 6: 20.3% MACE over next 6 weeks - Admit for Clinical Observation Score 7 - 10: 72.7% MACE over next 6 weeks - Early Invasive Strategies Current Medications: Current Medications Medications (Trade) Dose Ordered Sig/Niecy Start Time Stop Time Status Last Admin Dose Admin Ketorolac Tromethamine (Toradol 30mg Vial) 30 mg 1X ONCE 04/05/20 00:30 04/05/20 00:31 UNV Allergies: Allergies: Allergies Coded Allergies Type Severity Reaction Last Updated Verified Sulfa (Sulfonamide Antibiotics) Allergy Intermediate 06/07/14 Yes Physical Exam: PE: Constitutional: Well developed, well nourished, no acute distress, non-toxic appearance. [] HENT: Normocephalic, atraumatic, bilateral external ears normal, oropharynx moist, no oral exudates, nose normal. [] Eyes: PERRLA, EOMI, conjunctiva normal, no discharge. [] Neck: Normal range of motion, no tenderness, supple, no stridor. [] Cardiovascular:Heart rate regular rhythm, no murmur [] Lungs & Thorax: Bilateral breath sounds clear to auscultation [] Abdomen: Bowel sounds normal, soft, no tenderness, no masses, no pulsatile masses. [] Skin: Warm, dry, no erythema, no rash. [] Back: No tenderness, no CVA tenderness. [] Extremities: No tenderness, no cyanosis, no clubbing, ROM intact, no edema. [] Neurologic: Alert and oriented X 3, normal motor function, normal sensory function, no focal deficits noted. [] Psychologic: Affect normal, judgement normal, mood normal. [] Current Patient Data: Vital Signs: Vital Signs Date Time Temp Pulse Resp B/P (MAP) Pulse Ox O2 Delivery O2 Flow Rate FiO2 04/04/20 23:20 96.3 96 20 220/121 (154) 99 Room Air 96.3 EKG: EKG: EKG performed at 2337 heart rate [address] elevation no ST depression no acute CA [] Radiology/Procedures: Radiology/Procedures: [] Course & Med Decision Making: Course & Med Decision Making Pertinent Labs and Imaging studies reviewed. (See chart for details) []U preg negative serurm hcg negative Dragon Disclaimer: Dragon Disclaimer: This electronic medical record was generated, in whole or in part, using a voice recognition dictation system. Departure Departure Impression: Primary Impression: Vaginal spotting Additional Impression: Negative test Disposition: HOME, SELF-CARE Condition: STABLE Referrals: UNKNOWN PCP NAME (PCP) Justicifation of Admission Dx: Justifications for Admission: Justification of Admission Dx: N/A ELEUTERIO STAHL DO Apr 05, 2020 00:36
--- NOTE | 2020-04-05 11:48 | EKG ---
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
== END 2020-04-05 02:06 | disposition left against medical advice (07) ==
LOC: ER 23:14
DX: N93.9 Abnormal uterine and vaginal bleeding, unspecified (principal); R51 Headache; R11.2 Nausea with vomiting, unspecified; R19.7 Diarrhea, unspecified; M54.2 Cervicalgia; H92.03 Otalgia, bilateral; R42 Dizziness and giddiness; M79.10 Myalgia, unspecified site; J45.909 Unspecified asthma, uncomplicated; Z87.891 Personal history of nicotine dependence; Z88.2 Allergy status to sulfonamides
CPT/HCPCS: 93005; 96374; 96375; 99284; J0780; J1200; J1885

== ENCOUNTER 2020-12-24 15:19 | Emergency (ER) | payer OTHER ==
[~2020-12-24] VITALS: Ht 172.7 cm; Wt 166.8 kg
[2020-12-24 16:16] VITALS: BP 163/98
--- NOTE | 2020-12-24 16:17 | PHYS DOC ---
Past Medical History Past Medical History: Asthma Past Surgical History: Additional Past Surgical Histo: PARTIAL BOWEL OBSTRUCTION Smoking Status: Former Smoker Alcohol Use: None Drug Use: None General Adult EDM: Chief Complaint: HEMORRHOIDS HPI: HPI: This is a pleasant 35-year-old female presenting the emergency department today with hemorrhoids. She does have a history of hemorrhoids. Her pain has been present over the past week but worsened over the past 24 to 48 hours. She is a throbbing aching pain in her anus that is nonradiating and worse with defecation. She denies abdominal pain or any other complaints. Review of systems negative for abdominal pain fevers rashes vomiting chills. All other review of systems negative. ED course: 35-year-old female presenting with hemorrhoids. Here the patient was given Proctofoam. Will discharge patient with Proctofoam and Preparation H along with sits baths and MiraLAX to follow-up with her PCP in 1 to 2 days. She will likely be benefited by being seen by rectal surgeon within the next 5 to 7 days. Heart Score: C/O Chest Pain: No Risk Factors: Risk Factors: DM, Current or recent (<one month) smoker, HTN, HLP, family history of CAD, obesity. Risk Scores: Score 0 - 3: 2.5% MACE over next 6 weeks - Discharge Home Score 4 - 6: 20.3% MACE over next 6 weeks - Admit for Clinical Observation Score 7 - 10: 72.7% MACE over next 6 weeks - Early Invasive Strategies Allergies: Allergies: Allergies Coded Allergies Type Severity Reaction Last Updated Verified Sulfa (Sulfonamide Antibiotics) Allergy Intermediate 06/07/14 Yes Physical Exam: PE: Constitutional: Well developed, well nourished, no acute distress, non-toxic appearance. [] HENT: Normocephalic, atraumatic, bilateral external ears normal, oropharynx moist, no oral exudates, nose normal. [] Eyes: PERRLA, EOMI, conjunctiva normal, no discharge. [] Neck: Normal range of motion, no tenderness, supple, no stridor. [] Cardiovascular:Heart rate regular rhythm, no murmur [] Lungs & Thorax: Bilateral breath sounds clear to auscultation [] Abdomen: Bowel sounds normal, soft, no tenderness, no masses, no pulsatile masses. [] Rectal exam performed in the presence of a female strong nitric operator (Lana) patient has 2 external hemorrhoids present. No bleeding currently.. Skin: Warm, dry, no erythema, no rash. [] Back: No tenderness, no CVA tenderness. [] Extremities: No tenderness, no cyanosis, no clubbing, ROM intact, no edema. [] Neurologic: Alert and oriented X 3, normal motor function, normal sensory function, no focal deficits noted. [] Psychologic: Affect normal, judgement normal, mood normal. [] EKG: EKG: [] Radiology/Procedures: Radiology/Procedures: [] Course & Med Decision Making: Course & Med Decision Making Pertinent Labs and Imaging studies reviewed. (See chart for details) [] Dragon Disclaimer: DragVontu Disclaimer: This electronic medical record was generated, in whole or in part, using a voice recognition dictation system. Departure Departure Impression: Primary Impression: Acute hemorrhoid Disposition: 01 DC HOME SELF CARE/HOMELESS Condition: STABLE Referrals: UNKNOWN PCP NAME (PCP) Patient Instructions: Hemorrhoids Additional Instructions: EMERGENCY DEPARTMENT GENERAL DISCHARGE INSTRUCTIONS Follow-up with your primary physician in 1 to 2 days. Follow-up with colorectal surgery within 5 to 7 days. return to the emergency department if you have any new or concerning findings. Thank you for coming to [facility] Emergency Department (ED) today and trusting us with you care. We trust that you had a positive experience in our Emergency Department. If you wish to speak to the department management, you may call the Director at [phone]. Follow up is important in emergency/acute care visits. This condition should be evaluated by your primary care physician and any necessary consulting services for continued management within a few days (1-2) after discharge. Return to the emergency department if you have any new or concerning symptoms including but not limited to fever, chills, nausea, vomiting, intractable pain, any new rashes, chest pain, shortness of breath, uncontrolled bleeding, difficulty breathing, and/or vision loss. 1. Do you have a private Doctor? If you do not have a private doctor, please ask for a resource list of physicians or clinics that may be able to assist you with follow up care. 2. If a lab test or culture has been done and does not come back immediately, your results will be reviewed and you will be notified if you need a change in treatment. 3. Your care today has been supervised by a physician who is specially trained in emergency care. Many problems require more than one evaluation for a complete diagnosis and treatment. We recommend that you schedule your follow up appointment as recommended to ensure complete treatment of you illness or injury. If you are unable to obtain follow up care and continue to have a problem, or if your condition worsens, we recommend that you return to the ED. 4. We are not able to safely determine your condition over the phone nor are we able to give sound medical advice over the phone. For these safety reasons, if you call for medical advice we will ask you to come to the ED for further evaluation. IF YOUR SYMPTOMS WORSEN OR NEW SYMPTOMS DEVELOP, OR YOU HAVE CONCERNS ABOUT YOUR CONDITION; OR IF YOUR CONDITION WORSENS WHILE YOU ARE WAITING FOR YOUR FOLLOW UP APPOINTMENT; EITHER CONTACT YOUR PRIMARY CARE DOCTOR, THE PHYSICIAN WHOSE NAME AND NUMBER YOU WERE GIVEN, OR RETURN TO THE ED IMMEDIATELY. Scripts Polyethylene Glycol 3350 (MIRALAX) 17 Gm Powd.pack 1 PACKET PO DAILY, #30 PACKET 3 Refills Prov: NIKKI RAMIREZ MD 12/24/20 Abdulaziz Villarreal (PREPARATION H) 1 Each Med..pad 1 EACH TP PRN PRN for rectal pain, #10 PAD 0 Refills Prov: NIKKI RAMIREZ MD 12/24/20 Hydrocortisone/Pramoxine (PROCTOFOAM-HC 1%-1% FOAM) 10 Gm Foam 1 APPFUL RC BID, #10 GM 1 Refill Prov: NIKKI RAMIREZ MD 12/24/20 Hydrocortisone Acetate (ANUSOL-HC) 25 Mg Supp.rect 1 SUPP RC PRN BID PRN for PAIN, #14 SUPP Prov: NIKKI RAMIREZ MD 12/24/20 NIKKI RAMIREZ MD Dec 24, 2020 16:17
[2020-12-24] MEDS ORDERED: HYDR10FO3 RC (16:42)
[2020-12-24] MEDS ORDERED: WITC1MED TP (16:42)
[2020-12-24] MEDS ORDERED: HYDR25SU18 RC (16:42)
[2020-12-24] MEDS ORDERED: [UNRECOGNIZED DRUG - OTHER] RC PRN (16:45)
[2020-12-24] MEDS ORDERED: PHENYLEPH/MINERAL OIL/PETROLAT RECTAL OINTMENT TUBE. RC PRN (16:45)
[2020-12-24] MEDS ORDERED: POLY17PO29 PO (17:45)
== END 2020-12-24 18:01 | disposition home or self-care (01) ==
LOC: ER 15:19
DX: K64.4 Residual hemorrhoidal skin tags (principal); K62.89 Other specified diseases of anus and rectum; J45.909 Unspecified asthma, uncomplicated; Z98.890 Other specified postprocedural states; Z87.891 Personal history of nicotine dependence; Z88.2 Allergy status to sulfonamides
CPT/HCPCS: 99283